=== PATIENT | male | born 1990 | race Caucasian/White ===

== ENCOUNTER 2025-06-21 15:24 | Emergency (ER) | payer MEDICAID, SELFPAY ==
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
[2025-06-21 15:39] VITALS: BP 109/61; PULSE 72; RESP 17; TEMP 36.9; O2SAT 97
--- NOTE | 2025-06-21 15:56 | XR_ITS ---
Examination: CT thoracic spine, without contrast. 2-D sagittal reconstructions. 2-D coronal reconstructions. 3-D reconstructions. Date and time of exam:June 21, 2025, 1656 hrs. Indications: Ground-level fall 2 days ago with injury to the back, back pain CTDI: vol (mGy):17.4 DLP: (mGycm):599 Technique: Multiple 1.25 mm axial sections of the thoracic spine without intravenous contrast have been obtained. 2-D sagittal and coronal reconstructions have been obtained. 3-D reconstructions have been obtained. Low dose protocols were performed. One or more of the following dose reduction techniques were used; automated exposure control, adjustment of the mA and/or KV according to patient size, use of iterative reconstruction technique. Findings: Adequate alignment thoracic vertebral bodies on the lateral view Mild kyphosis dorsal spine Mild to moderate diffuse thoracic disc narrowing Mild thoracic spondylosis No thoracic vertebral body compression fracture. Posterior spinous processes exhibit satisfactory alignment. Thoracic pedicles, laminae, transverse and posterior spinous processes appear intact No focal thoracic disc protrusion Impression: No acute thoracic fracture
--- NOTE | 2025-06-21 15:56 | EKG_ITS ---
[facility] Test Date: 2025-06-21 Pat Name: SYD MACHADO Department: Room: - Gender: Male Assembly Department Supervisor: : [id number] Requested By: Bette Cedeño Order Number: [id number] Reading MD: Bette Cedeño Measurements Intervals [place] Rate: 67 P: 54 MD: 135 QRS: 95 QRSD: 104 T: 51 QT: 381 QTc: 403 Interpretive Statements SINUS RHYTHM BORDERLINE RIGHT AXIS DEVIATION [QRS AXIS > 90] No previous ECG available for comparison /[id number]/[email or web address]/[id number].pdf
--- NOTE | 2025-06-21 15:56 | XR_ITS ---
Examination: AP chest single view Technique: Portable AP semiupright chest single view Date and time: June 21, 2025, 1714 hrs. Indications: Patient fell today with into the chest, chest pain. Findings: Normal heart size No pneumothorax. Mild osteopenia. Clavicles and ribs appear intact Impression: No pneumothorax pulmonary contusion or hemothorax
--- NOTE | 2025-06-21 15:56 | XR_ITS ---
Examination: Hand, right 2 views Technique: Hand AP, lateral 2 views Date and time of exam: June 21, 2020 02/01/2021 Indications: Patient fell today with injury to the hand, hand pain. Findings: No acute fracture No dislocation No foreign body Impression: No acute fracture
--- NOTE | 2025-06-21 15:56 | XR_ITS ---
Examination: Right shoulder 2 views Technique: AP external rotation AP internal rotation right shoulder 2 views Date and time: June 21, 2025, 1720 hrs. Indications: Patient fell today with into the shoulder, shoulder pain. Findings: No shoulder fracture or dislocation. No AC joint separation Impression: No shoulder fracture or dislocation
--- NOTE | 2025-06-21 15:56 | XR_ITS ---
Examination: CT brain head without contrast. 2-D sagittal coronal reconstructions Date and time of exam:June 21, 2025, 1649 hrs. Indications: Headache after ground-level fall 2 days ago CTDI: vol (mGy):46.8 DLP: (mGycm):874 Technique: Multiple CT axial sections of the brain have been obtained, 5 mm slice thickness, 2-D sagittal, coronal reconstructions have been obtained Low dose protocols were performed. One or more of the following dose reduction techniques were used; automated exposure control, adjustment of the mA and/or KV according to patient size, use of iterative reconstruction technique. Findings: No significant ventricular enlargement. Intra-axial or extra-axial hemorrhage density is not seen. No mass effect or midline shift Basal cisterns are not remarkable. Fourth ventricle is midline. Cranial vault intact. Impression: Negative for acute hemorrhage, mass effect or midline shift
--- NOTE | 2025-06-21 15:56 | XR_ITS ---
Examination: AP pelvis single view Technique: AP portable supine pelvis single view Date and time: June 21, 2025, 1713 hrs. Indications: Patient fell today with injury of the pelvis, pelvic pain. Findings: The film does not include both hips entirely Bones of the pelvis are intact Impression: Repeat this study
--- NOTE | 2025-06-21 15:56 | XR_ITS ---
Examination: Forearm, right, 2 views. Technique: Forearm, AP, lateral 2 views Date and time of exam: June 21, 2025, 1723 hrs. Indications: Patient fell today with injury to the right forearm, right forearm pain. Findings: No acute fracture No foreign body No cortical bone destruction Impression: No acute fracture
--- NOTE | 2025-06-21 15:56 | XR_ITS ---
Examination: CT cervical spine without contrast 2-D sagittal reconstructions 2-D coronal reconstructions 3-D reconstructions. Exam date and time:June 21, 2025, 1659 hrs. Indications: Patient fell today with injury to the neck, neck pain CTDI:vol (mGy) 12.8 DLP: (mGycm) 266 Technique: Multiple 2 mm axial sections of the cervical spine have been obtained. The coronal and sagittal reconstructions have been obtained. 3-D reconstructions have been obtained. Low dose protocols were performed. One or more of the following dose reduction techniques were used; automated exposure control, adjustment of the mA and/or KV according to patient size, use of iterative reconstruction technique. Findings: Axial sections demonstrate intact base of the skull. C1 exhibit satisfactory relationship to the odontoid. No acute cervical vertebral body fracture seen. Alignment posterior spinous processes satisfactory. Impression: No acute cervical fracture.
--- NOTE | 2025-06-21 15:56 | XR_ITS ---
Examination: Ribs, right, unilateral 3 views Technique: AP, RPO LPO right ribs 3 views Date and time: June 21, 2025, 1716 hrs. Indications: Patient fell today with into the right chest, right rib pain. Findings: Normal heart size. No pneumothorax. No RPO view of the ribs Impression: Limited study No pneumothorax pulmonary contusion or hemothorax No acute rib fractures depicted
--- NOTE | 2025-06-21 15:56 | XR_ITS ---
Examination: CT lumbar spine, without contrast. 2-D sagittal reconstructions. 2-D coronal reconstructions. 3-D reconstructions. Date and time of exam:June 21, 2025, 1653 hrs. Indications: Ground-level fall 2 days ago with injury to the lower back, lower back pain CTDI: vol (mGy):11.9 DLP: (mGycm):348 Technique: Multiple 1.25 mm axial sections of the lumbar spine without intravenous contrast have been obtained. 2-D sagittal and coronal reconstructions have been obtained. 3-D reconstructions have been obtained. Low dose protocols were performed. One or more of the following dose reduction techniques were used; automated exposure control, adjustment of the mA and/or KV according to patient size, use of iterative reconstruction technique. Findings: Adequate alignment lumbar vertebral bodies No lumbar vertebral body compression fracture No spondylolisthesis Lumbar pedicles, laminae, transverse and posterior spinous processes intact Sacral segments visualized appear intact L5-S1 2 mm central lumbar disc bulge L4-L5 3 mm left paracentral subarticular disc bulge, axial image 90, displacing the left L4 nerve root Impression: No acute lumbar fracture L5-S1 2 mm central lumbar disc bulge L4-L5 3 mm left paracentral subarticular disc bulge displacing the left L4 nerve root
[2025-06-21 16:02] VITALS: PULSE 86; RESP 18; O2SAT 98
[2025-06-21 16:06] VITALS: BMI 18.8
[2025-06-21] MEDS: RINGERS LACTATED 1000 ML 1,000 ML 999 ML IV (16:27)
[2025-06-21 16:43] LABS: Basophils # (Auto) 0.1 Thou/mm3 (0.0-0.2); Basophils % (Auto) 1 % (0-2.5); Eosinophils # (Auto) 0.2 Thou/mm3 (0.0-0.5); Eosinophils % (Auto) 3 % (0-10); Hematocrit 42.1 % (41.0-53.0); Hemoglobin 13.2 g/dL (13.5-16.0); Immature Granulocytes Auto 0.02 Thou/mm3 (0.00-0.00); Lymphocytes # (Auto) 2.5 Thou/mm3 (1.0-4.8); Lymphocytes % (Auto) 28 % (10-50); Mean Corpuscular HGB Conc 31.4 g/dl (31.0-37.0); Mean Corpuscular Hemoglobin 26.8 pg (25.0-35.0); Mean Corpuscular Volume 86 fL (80-100); Monocytes # (Auto) 0.8 Thou/mm3 (0.0-0.8); Monocytes % (Auto) 9 % (0-12); Neutrophils # (Auto) 5.1 Thou/mm3 (1.8-7.7); Neutrophils % (Auto) 59 % (37-80); Nucleated Red Blood Cell # 0.00 Thou/mm3 (0.00-0.00); Nucleated Red Blood Cell % 0 /100 WBC (0); Platelet Count 296 Thou/mm3 (140-440); RDW Standard Deviation 49.7 fL (35.1-43.9); Red Blood Count 4.92 Miln/mm3 (4.50-5.90); White Blood Count 8.7 Thou/mm3 (3.8-10.6)
[2025-06-21 16:53] LABS: Alanine Aminotransferase 46 U/L (10-49); Albumin, Serum 4.6 gm/dL (3.5-5.0); Albumin/Globulin Ratio 1.6 (1.2-2.2); Alkaline Phosphatase 99 U/L (46-116); Anion Gap 9 (7-16); Aspartate Amino Transferase 37 U/L (0-34); BUN/Creatinine Ratio 9 Ratio (12-20); Bilirubin,Total 0.4 mg/dL (0.3-1.2); Blood Urea Nitrogen 8 mg/dL (9-23); Calcium 9.7 mg/dL (8.3-10.6); Calcium (Corrected) 9.7 mg/dL (8.5-10.1); Carbon Dioxide 30.4 mMol/L (20.0-31.0); Chloride 102 mMol/L (98-107); Creatine Kinase 270 U/L (34-171); Creatinine (Component) 0.9 mg/dL (0.6-1.3); Estimated Creatinine Clearance 95.9 mL/min (>60); Globulin 2.8 gm/dL (2.3-3.5); Glucose 96 mg/dL (74-106); Osmolality,Calculated 279 (275-295); Potassium 4.2 mMol/L (3.4-5.1); Sodium 141 mMol/L (136-145); Total Protein 7.4 gm/dL (5.7-8.2); Troponin I < 0.002 ng/mL (0.0-0.045); eGFR > 60 See Note
[2025-06-21 18:30] VITALS: BP 115/68; PULSE 58; RESP 18; TEMP 36.8; O2SAT 100
[2025-06-21 18:33] LABS: Collection Type, Urine Clean Catch
[2025-06-21 18:45] LABS: Bilirubin,Urine Negative (Negative); Blood,Urine Negative (Negative); Clarity,Urine Clear (Clear/Hazy); Color,Urine Lt-Yellow (Lt Yel-Yel); Culture Indicated,Urine Not Indicated; Glucose, Urine Negative (Negative); Ketones,Urine Negative (Negative); Leukocyte Esterase,Urine Negative (Negative); Nitrite,Urine Negative (Negative); PH,Urine 6.5 (5.0-7.0); Protein,Urine Negative (Neg - Trace); RBC,Urine 1 /hpf (0-3); Specific Gravity,Urine 1.008 (1.001-1.035); Squamous Epithelial Cell,Urine < 1 /hpf (0-5); Urobilinogen,Urine Negative mg/dL (0.0-1.0); WBC,Urine 1 /hpf (0-5)
--- NOTE | 2025-06-21 18:47 | PD.EDADDENDU ---
Emergency Room Addendum <Lia Cid - Last Filed: 06/21/25 23:34> Addendum Narrative: I took over the care from previous shift physician at 6 PM on 06/21/2025. See previous notes for complete H & P and ED course. I reviewed all diagnostic test results. My interpretation of the EKG is My interpretation of the Shoulder x-ray is: No fracture. My interpretation of the Ribs x-ray is: No fracture. My interpretation of the Pelvis x-ray is: The film does not include both hips entirely. Bones of the pelvis are intact. Repeat this study. My interpretation of the Hand x-ray is: No fracture. My interpretation of the Forearm x-ray is: No fracture. My interpretation of the chest x-ray is: NAD. My review of the Head/Brain CT report is: NAD. My review of the C-Spine CT report is: No fracture. My review of the T-Spine CT report is: No fracture. My review of the L-Spine CT report is: No acute lumbar fracture. L5-S1 2 mm central lumbar disc bulge. L4-L5 3 mm left paracentral subarticular disc bulge displacing the left L4 nerve root. Blood tests and urine tests Diagnoses include: Fall Treatment here included: Ringer's Lactated Based on my best medical judgment, made decision no further evaluation or treatment indicated at this time. Patient understands and agrees to the discharge instructions customized and printed, see below. Discharge instructions from Dr. Bueno: 1. After extensive evaluation, fortunately there is no very serious injury. Such as brain injury or broken neck or broken back or other broken bone or internal organ injury. 2. Activity as tolerated. Expect to have aches and pain for a couple of weeks, maybe worse in the next couple of days before improving. 3. Ibuprofen and Tylenol as needed. 4. See a private doctor on 07/12 for recheck and repeat exam to make sure we didn't miss any serious underlying injury. 5. Seek immediate medical care with severe and persistent headache, persistent vomiting, being extremely drowsy when you should be completely alert and awake, or with any concerns. Saleem Bueno MD <Saleem Bueno MD - Last Filed: 06/22/25 00:02> Addendum Narrative: I took over the care from previous shift physician, Dr. Botello, at 6 PM on 06/21/2025. See previous notes for complete H & P and ED course. I reviewed all diagnostic test results. My interpretation of the EKG is sinus rhythm with no acute ST?T changes. My interpretation of the x-rays is no acute fracture. My review of the Head/Brain CT report is: NAD. My review of the C-Spine CT report is: No fracture. My review of the T-Spine CT report is: No fracture. My review of the L-Spine CT report is: No fracture. Blood tests and urine tests unremarkable. Diagnoses include: Fall with no serious injury Recommended supportive care. Based on my best medical judgment, made decision no further evaluation or treatment indicated at this time. Patient understands and agrees to the discharge instructions customized and printed, see below. Discharge instructions from Dr. Bueno: 1. After extensive evaluation, fortunately there is no very serious injury. Such as brain injury or broken neck or broken back or other broken bone or internal organ injury. 2. Activity as tolerated. Expect to have aches and pain for a couple of weeks, maybe worse in the next couple of days before improving. 3. Ibuprofen and Tylenol as needed. 4. See a private doctor on 07/12 for recheck and repeat exam to make sure we didn't miss any serious underlying injury. 5. Seek immediate medical care with severe and persistent headache, persistent vomiting, being extremely drowsy when you should be completely alert and awake, or with any concerns. Saleem Bueno MD
[2025-06-21 20:10] VITALS: BP 106/64; PULSE 70; RESP 16; TEMP 36.5; O2SAT 100
== END 2025-06-21 20:50 | disposition home or self-care (01) ==
PROVIDERS: Emergency Provider Emergency Medicine
DX: M54.50 Low back pain, unspecified (principal); R10.A1 Flank pain, right side; M25.511 Pain in right shoulder; M25.551 Pain in right hip; M79.631 Pain in right forearm; M54.2 Cervicalgia; R20.0 Anesthesia of skin; R53.1 Weakness; Z59.02 Unsheltered homelessness; S09.90XA Unspecified injury of head, initial encounter; V81.5XXA Occupant of railway train or railway vehicle injured by fall in railway train or railway vehicle, initial encounter; Y92.85 Railroad track as the place of occurrence of the external cause
CPT/HCPCS: 36415; 70470; 71045; 71100; 72125; 72128; 72131; 72170; 73030; 73090; 73130; 80053; 81001; 82550; 84484; 85025; 93005; 96360; 96361; 99284; A4649; J7120; Q9967